=== PATIENT | female | born 1955 | race Hispanic/Latino ===

== ENCOUNTER 2021-12-23 15:56 | Emergency (ER) | payer BC, MEDICARE ==
[~2021-12-23] VITALS: Ht 160 cm; Wt 90.7 kg
[2021-12-23] MEDS ORDERED: PHENAZOPYRIDINE HCL 200 MG TABLET PO ONE (16:30)
[2021-12-23] MEDS ORDERED: ACETAMINOPHEN 500 MG TABLET PO ONE (16:30)
[2021-12-23] MEDS ORDERED: NITROFURANTOIN MONOHYD/M-CRYST 100 MG CAPSULE PO ONE (16:30)
[2021-12-23 16:45] LABS: APPEARANCE,URINE TURBID (CLEAR); BILIRUBIN,URINE NEGATIVE (NEGATIVE); COLOR,URINE RED (YELLOW); GLUCOSE, URINE (UA) NEGATIVE (NEGATIVE); KETONES,URINE NEGATIVE (NEGATIVE); LEUKOCYTE ESTERASE ,URINE LARGE (NEGATIVE); NITRATE,URINE NEGATIVE (NEGATIVE); OCCULT BLOOD,URINE LARGE (NEGATIVE); PROTEIN,URINE 100 mg/dL (NEGATIVE); UROBILINOGEN,URINE 0.2 mg/dL (0.2-1.0)
[2021-12-23] MEDS ORDERED: MACR100 PO (17:02)
[2021-12-23] MEDS ORDERED: PHEN-847 PO (17:02)
[2021-12-23 17:03] LABS: RBC,URINE TNTC /HPF (0-1)
[2021-12-23 17:06] VITALS: BP 135/79
[2021-12-23 17:06] LABS: BACTERIA,URINE Few /HPF (None Seen); SQUAMOUS EPITHELIAL CELL,UR Rare /HPF (0-2)
[2021-12-23 17:07] LABS: TRANSITIONAL EPI CELLS,URINE Rare /HPF (None Seen); WBC,URINE 26-50 /HPF (0-1)
[2021-12-23 17:08] LABS: RENAL EPITHELIAL CELLS,URINE Rare /HPF (None Seen)
== END 2021-12-23 17:15 | disposition home or self-care (01) ==
LOC: EDH 15:56
DX: N39.0 Urinary tract infection, site not specified (principal); I10 Essential (primary) hypertension; Z88.0 Allergy status to penicillin; Z88.1 Allergy status to other antibiotic agents; Z88.6 Allergy status to analgesic agent; Z88.2 Allergy status to sulfonamides; Z98.890 Other specified postprocedural states
CPT/HCPCS: 81001; 87077; 87088; 87186

== ENCOUNTER 2022-08-23 20:42 | Inpatient (IN) | payer BC, MEDICARE ==
[~2022-08-23] VITALS: Ht 160 cm; Wt 84.5 kg
[~2022-08-23 20:42] MED LIST: CACL 1GM SYG IVP ONE; MACR100 PO; PHEN-847 PO
[2022-08-23 21:05] LABS: BASOPHILS % (AUTO) 0.6 % (0.0-5.0); EOSINOPHILS % (AUTO) 0.4 % (0.0-8.0); HEMATOCRIT 34.8 % (36-48); LYMPHOCYTES % (AUTO) 20.4 % (21.0-51.0); MEAN CORPUSCULAR HEMOGLOBIN 28.1 pg (27.0-33.0); MEAN CORPUSCULAR HGB CONC 33.6 g/dL (32.0-36.0); MEAN CORPUSCULAR VOLUME 83.7 fL (79-99); MONOCYTES % (AUTO) 8.1 % (3.0-13.0); NEUTROPHILS % (AUTO) 70.2 % (40.0-77.0); PLATELET COUNT (AUTO) 404 K/uL (130-400); RED BLOOD CELL COUNT(AUTO) 4.16 MIL/uL (4.00-5.50); RED CELL DISTRIBUTION WIDTH 13.5 % (11.0-15.5)
[2022-08-23] MEDS ORDERED: ATROPINE 1MG SYG IVP ONE (21:05)
[2022-08-23] MEDS ORDERED: MORPHINE 4 MG SYG ONE (21:16)
[2022-08-23] MEDS: CACL 1GM SYG IVP SCH (21:17)
[2022-08-23 21:23] LABS: ALBUMIN 2.8 g/dL (3.5-5.0); POTASSIUM 3.6 mmol/L (3.5-5.1); TOTAL PROTEIN, SERUM 7.4 g/dL (6.0-8.3)
[2022-08-23] MEDS ORDERED: ONDANSETRON 4MG INJ ONE (21:30)
[2022-08-23] MEDS ORDERED: DOPAMINE 800MG/D5 250ML 250 ML IV ONE (21:39)
[2022-08-23] MEDS ORDERED: ATROPINE 1MG SYG IVP SCH (22:00)
[2022-08-23] MEDS ORDERED: ONDANSETRON 4MG INJ IVP ONE ×2 (22:00→22:30)
[2022-08-23] MEDS ORDERED: MORPHINE 2 MG SYG IVP ONE (22:00)
[2022-08-23] MEDS ORDERED: PROCHLORPERAZINE 10MG/2ML INJ IV ONE (22:30)
[2022-08-23] MEDS ORDERED: ACETAMINOPHEN 325 MG TAB PO PRN (23:30)
[2022-08-23 23:39] LABS: PARTIAL THROMBOPLASTIN TIME 60.7 SEC (26.3-35.5)
[2022-08-23 23:47] LABS: PHOSPHORUS 3.4 mg/dL (2.5-4.9); THYROID STIMULATING HORMONE 2.44 uIU/mL (0.36-3.74)
[2022-08-23 23:53] LABS: INR 4.19 (0.85-1.15); PROTHROMBIN TIME 42.1 SEC (9.6-11.6)
[2022-08-24] VITALS (33 sets, daily range): BP systolic 115–178; BP diastolic 26–91
[2022-08-24] MEDS ORDERED: ISOS20TA9 PO (02:27)
[2022-08-24] MEDS ORDERED: HYDR-3421 PO (02:27)
[2022-08-24] MEDS ORDERED: SACU1TAB7 PO (02:27)
[2022-08-24] MEDS ORDERED: HYDR-4154 PO (02:27)
[2022-08-24] MEDS ORDERED: DILT60TA3 PO (02:27)
[2022-08-24] MEDS ORDERED: DOXA4TAB3 PO (02:27)
[2022-08-24] MEDS ORDERED: SOLU-MEDROL 125MG VIAL IM ONE (04:00)
[2022-08-24] MEDS ORDERED: ALBUTEROL INHALER 90MCG/INH IH PRN (04:00)
[2022-08-24] MEDS ORDERED: SOLU-MEDROL 125MG VIAL IVP ONE (04:30)
[2022-08-24 05:28] LABS: BASOPHILS % (AUTO) 0.4 % (0.0-5.0); EOSINOPHILS % (AUTO) 0.1 % (0.0-8.0); HEMATOCRIT 38.1 % (36-48); LYMPHOCYTES % (AUTO) 7.8 % (21.0-51.0); MEAN CORPUSCULAR HEMOGLOBIN 28.1 pg (27.0-33.0); MEAN CORPUSCULAR HGB CONC 32.8 g/dL (32.0-36.0); MEAN CORPUSCULAR VOLUME 85.6 fL (79-99); MONOCYTES % (AUTO) 7.6 % (3.0-13.0); NEUTROPHILS % (AUTO) 83.3 % (40.0-77.0); PLATELET COUNT (AUTO) 472 K/uL (130-400); RED BLOOD CELL COUNT(AUTO) 4.45 MIL/uL (4.00-5.50); RED CELL DISTRIBUTION WIDTH 13.2 % (11.0-15.5); WHITE BLOOD COUNT (AUTO) 21.1 K/uL (4.8-10.8)
[2022-08-24 05:41] LABS: CREATININE 1.1 mg/dL (0.5-1.5)
[2022-08-24 06:02] LABS: APPEARANCE,URINE CLOUDY (CLEAR); BILIRUBIN,URINE NEGATIVE (NEGATIVE); COLOR,URINE YELLOW (YELLOW); GLUCOSE, URINE (UA) NEGATIVE (NEGATIVE); KETONES,URINE 5 mg/dL (NEGATIVE); LEUKOCYTE ESTERASE ,URINE NEGATIVE Leu/uL (NEGATIVE); NITRATE,URINE NEGATIVE (NEGATIVE); OCCULT BLOOD,URINE SMALL (NEGATIVE); PH,URINE 5.5 (5.0-8.0); PROTEIN,URINE 50 mg/dL (NEGATIVE); UROBILINOGEN,URINE 0.2 mg/dL (0.2-1.0)
[2022-08-24] MEDS ORDERED: LIOT5TAB11 PO (06:25)
[2022-08-24] MEDS ORDERED: LEVO75CA5 PO (06:25)
[2022-08-24] MEDS ORDERED: WARF4TAB72 PO (06:38)
[2022-08-24] MEDS ORDERED: VERA300C4 PO (06:38)
[2022-08-24] MEDS ORDERED: WARF-67 PO (06:38)
[2022-08-24] MEDS ORDERED: AUD IH (06:38)
[2022-08-24] MEDS ORDERED: BUDE10.2 IH (06:40)
[2022-08-24 06:47] LABS: WBC,URINE None Seen /HPF (0-1)
[2022-08-24] MEDS ORDERED: GUAI5LIQ13 PO (06:47)
[2022-08-24] MEDS ORDERED: LOSA25TA41 PO (06:47)
[2022-08-24] MEDS ORDERED: NALT5POW MC (06:47)
[2022-08-24 06:48] LABS: BACTERIA,URINE Rare /HPF (None Seen); CALCIUM OXALATE CRYSTALS,UR Few /LPF (None Seen); SQUAMOUS EPITHELIAL CELL,UR Few /HPF (0-2)
[2022-08-24] MEDS: ALBUTEROL 0.083% 2.5 MG/3 ML INH IH SCH ×4 (07:16→23:27)
[2022-08-24] MEDS: CACL 1GM SYG IVP SCH (07:48)
[2022-08-24] MEDS ORDERED: FUROSEMIDE 20MG VIAL IV SCH (08:30)
[2022-08-24] MEDS ORDERED: MEROPENEM 2 GM in 0.9%NACL 100ML 100 ML IVPB SCH (09:00)
[2022-08-24] MEDS ORDERED: COMPOUND IV REFRIGERATED 1 EACH IVSOLN MISC PRN (09:30)
[2022-08-24] MEDS ORDERED: VANCOMYCIN PROTOCOL PER PHARMACY IV SCH (09:30)
[2022-08-24] MEDS ORDERED: MEROPENEM 1 GM VIAL IVP SCH ×2 (09:30→10:30)
[2022-08-24] MEDS ORDERED: PHARMACY COMMUNICATION MISC SCH (09:30)
[2022-08-24] MEDS: FAMOTIDINE 20MG VIAL IV SCH (09:36)
[2022-08-24] MEDS ORDERED: MEROPENEM 1 GM VIAL ONE (09:37)
[2022-08-24] MEDS: VANCOMYCIN 1.25GM/NS 250ML IVPB SCH ×2 (10:13)
[2022-08-24] MEDS ORDERED: 0.9%NACL 1000ML 1,000 ML IV ONE (11:12)
[2022-08-24] MEDS: MEROPENEM 1 GM VIAL IVP SCH ×2 (12:00→23:39)
[2022-08-24] MEDS ORDERED: SOLU-MEDROL 40MG VIAL IVP SCH (12:00)
[2022-08-24 14:33] LABS: PROTHROMBIN TIME 49.6 SEC (9.6-11.6)
[2022-08-24 14:34] LABS: INR 4.98 (0.85-1.15)
[2022-08-24] MEDS ORDERED: FLUTICASONE/VILANTEROL 1 EACH AER.POW.BA IH PRN (16:30)
[2022-08-25] VITALS (26 sets, daily range): BP systolic 140–180; BP diastolic 61–92
[2022-08-25] MEDS: DOPAMINE 800MG/D5 250ML 250 ML IV PRN (02:09)
[2022-08-25 05:16] LABS: HEMATOCRIT 36.7 % (36-48); MEAN CORPUSCULAR HEMOGLOBIN 28.4 pg (27.0-33.0); MEAN CORPUSCULAR HGB CONC 33.2 g/dL (32.0-36.0); MEAN CORPUSCULAR VOLUME 85.3 fL (79-99); RED BLOOD CELL COUNT(AUTO) 4.3 MIL/uL (4.00-5.50); RED CELL DISTRIBUTION WIDTH 13.3 % (11.0-15.5)
[2022-08-25 05:41] LABS: CREATININE 0.8 mg/dL (0.5-1.5); PHOSPHORUS 3.1 mg/dL (2.5-4.9); POTASSIUM 3.8 mmol/L (3.5-5.1)
[2022-08-25 05:55] LABS: PROTHROMBIN TIME 47.7 SEC (9.6-11.6)
[2022-08-25 05:56] LABS: INR 4.78 (0.85-1.15)
[2022-08-25] MEDS: LEVOTHYROXINE 75 MCG TABLET PO SCH (05:57)
[2022-08-25] MEDS: ALBUTEROL 0.083% 2.5 MG/3 ML INH IH SCH (07:20)
[2022-08-25] MEDS: FAMOTIDINE 20MG VIAL IV SCH (08:43)
[2022-08-25] MEDS: VANCOMYCIN 1.25GM/NS 250ML IVPB SCH ×2 (10:19)
[2022-08-25] MEDS: MEROPENEM 1 GM VIAL IVP SCH ×2 (12:10→23:36)
[2022-08-25] MEDS: CACL 1GM SYG IVP SCH (21:31)
[2022-08-26] VITALS (24 sets, daily range): BP systolic 102–173; BP diastolic 39–87
[2022-08-26 03:53] LABS: HEMATOCRIT 36.3 % (36-48); MEAN CORPUSCULAR HEMOGLOBIN 28.3 pg (27.0-33.0); MEAN CORPUSCULAR VOLUME 88.5 fL (79-99); RED BLOOD CELL COUNT(AUTO) 4.1 MIL/uL (4.00-5.50); RED CELL DISTRIBUTION WIDTH 13.6 % (11.0-15.5); WHITE BLOOD COUNT (AUTO) 22.4 K/uL (4.8-10.8)
[2022-08-26 03:54] LABS: ABG BASE EXCESS 6.1 mmol/L (-2.0-3.0); ABG HCO3 30.9 mmol/L (21.0-28.0); ABG OXYGEN SATURATION 95.9 % (95.0-99.0); ABG PCO2 45 mmHg (32-45)
[2022-08-26 04:07] LABS: INR 2.15 (0.85-1.15); PROTHROMBIN TIME 22.4 SEC (9.6-11.6)
[2022-08-26 04:08] LABS: PARTIAL THROMBOPLASTIN TIME 38.8 SEC (26.3-35.5)
[2022-08-26 04:17] LABS: ALBUMIN 3.2 g/dL (3.5-5.0); CREATININE 0.8 mg/dL (0.5-1.5); PHOSPHORUS 3.3 mg/dL (2.5-4.9); POTASSIUM 4.4 mmol/L (3.5-5.1)
[2022-08-26] MEDS: DOPAMINE 800MG/D5 250ML 250 ML IV PRN (04:36)
[2022-08-26] MEDS: LEVOTHYROXINE 75 MCG TABLET PO SCH (05:32)
[2022-08-26] MEDS ORDERED: NALOXONE HCL 0.4 MG/1 ML ML IVP PRN (09:15)
[2022-08-26] MEDS ORDERED: FENTANYL CITRATE PF 50 MCG/1 ML 2ML VIAL IVP SCH (09:15)
[2022-08-26] MEDS ORDERED: FLUMAZENIL 0.1MG/1ML 5ML VIAL IV PRN (09:15)
[2022-08-26] MEDS: BENZOCAINE 20% 57 GM SPRAY TP SCH (09:15)
[2022-08-26] MEDS ORDERED: MIDAZOLAM HCL 1 MG/ML 2ML VIAL IVP SCH (09:15)
[2022-08-26] MEDS ORDERED: LIDOCAINE HCL 2% VISCOUS 15 ML UDCUP PO SCH (09:30)
[2022-08-26] MEDS: FAMOTIDINE 20MG VIAL IV SCH (10:57)
[2022-08-26] MEDS: ENOXAPARIN SODIUM 80 MG/0.8 ML SQ SCH ×2 (10:59→20:22)
[2022-08-26] MEDS: VANCOMYCIN 1.25GM/NS 250ML IVPB SCH ×2 (11:02)
[2022-08-26] MEDS ORDERED: PHARMACY COMMUNICATION MISC SCH (13:30)
[2022-08-26] MEDS ORDERED: [UNRECOGNIZED DRUG - OTHER] IV ONE (14:00)
[2022-08-26] MEDS ORDERED: GENTAMICIN SULFATE IV ONE (14:00)
[2022-08-26] MEDS ORDERED: GENTAMICIN PROTOCOL PER PHARMACY IV SCH (14:00)
[2022-08-26] MEDS: MEROPENEM 1 GM VIAL IVP SCH ×2 (14:03→23:15)
[2022-08-26] MEDS: CACL 1GM SYG IVP SCH (22:00)
[2022-08-27] VITALS (14 sets, daily range): BP systolic 120–151; BP diastolic 54–82
[2022-08-27 03:59] LABS: BASOPHILS % (AUTO) 0.3 % (0.0-5.0); EOSINOPHILS % (AUTO) 0.6 % (0.0-8.0); LYMPHOCYTES % (AUTO) 29.6 % (21.0-51.0); MEAN CORPUSCULAR HEMOGLOBIN 28.3 pg (27.0-33.0); MEAN CORPUSCULAR HGB CONC 33.4 g/dL (32.0-36.0); MEAN CORPUSCULAR VOLUME 84.5 fL (79-99); MONOCYTES % (AUTO) 9.8 % (3.0-13.0); NEUTROPHILS % (AUTO) 59.5 % (40.0-77.0); PLATELET COUNT (AUTO) 338 K/uL (130-400); RED BLOOD CELL COUNT(AUTO) 4.14 MIL/uL (4.00-5.50); RED CELL DISTRIBUTION WIDTH 13.4 % (11.0-15.5); WHITE BLOOD COUNT (AUTO) 9.3 K/uL (4.8-10.8)
[2022-08-27 04:08] LABS: INR 1.79 (0.85-1.15); PROTHROMBIN TIME 18.9 SEC (9.6-11.6)
[2022-08-27 04:09] LABS: PARTIAL THROMBOPLASTIN TIME 48.7 SEC (26.3-35.5)
[2022-08-27 04:13] LABS: CREATININE 0.8 mg/dL (0.5-1.5); POTASSIUM 3.8 mmol/L (3.5-5.1)
[2022-08-27] MEDS: LEVOTHYROXINE 75 MCG TABLET PO SCH (06:05)
[2022-08-27] MEDS: ENOXAPARIN SODIUM 80 MG/0.8 ML SQ SCH ×2 (08:38→20:32)
[2022-08-27] MEDS: FAMOTIDINE 20MG VIAL IV SCH (08:38)
[2022-08-27] MEDS: BENZOCAINE 20% 57 GM SPRAY TP SCH (08:39)
[2022-08-27] MEDS ORDERED: LACTULOSE 20 GM/30 ML UDCUP PO PRN (10:00)
[2022-08-27] MEDS ORDERED: KCL 20 MEQ ERTAB PO SCH (10:00)
[2022-08-27] MEDS ORDERED: KCL 20 MEQ ERTAB PO ONE (10:02)
[2022-08-27] MEDS: VANCOMYCIN 1.25GM/NS 250ML IVPB SCH ×2 (10:04)
[2022-08-27] MEDS: CACL 1GM SYG IVP SCH (20:32)
[2022-08-27] MEDS: VANCOMYCIN 1G/250ML KIT 250 ML IV SCH (20:33)
[2022-08-28 03:51] VITALS: BP 155/75
[2022-08-28 04:01] VITALS: BP 130/46
[2022-08-28 04:10] LABS: BASOPHILS % (AUTO) 0.4 % (0.0-5.0); EOSINOPHILS % (AUTO) 2.2 % (0.0-8.0); HEMATOCRIT 30.7 % (36-48); LYMPHOCYTES % (AUTO) 26.9 % (21.0-51.0); MEAN CORPUSCULAR HGB CONC 32.9 g/dL (32.0-36.0); MONOCYTES % (AUTO) 8.1 % (3.0-13.0); NEUTROPHILS % (AUTO) 62.1 % (40.0-77.0); PLATELET COUNT (AUTO) 277 K/uL (130-400); RED BLOOD CELL COUNT(AUTO) 3.61 MIL/uL (4.00-5.50); RED CELL DISTRIBUTION WIDTH 13.2 % (11.0-15.5)
[2022-08-28 04:17] LABS: CREATININE 0.7 mg/dL (0.5-1.5); POTASSIUM 3.6 mmol/L (3.5-5.1)
[2022-08-28 04:25] LABS: INR 1.27 (0.85-1.15); PROTHROMBIN TIME 13.7 SEC (9.6-11.6)
[2022-08-28] MEDS: LEVOTHYROXINE 75 MCG TABLET PO SCH (06:06)
[2022-08-28] MEDS: FAMOTIDINE 20MG VIAL IV SCH (07:58)
[2022-08-28] MEDS: VANCOMYCIN 1G/250ML KIT 250 ML IV SCH ×2 (07:59→20:52)
[2022-08-28 08:00] VITALS: BP 142/63
[2022-08-28] MEDS ORDERED: LIDOCAINE HCL-MPF 1% 2ML VIAL IV PRN (08:00)
[2022-08-28] MEDS: ENOXAPARIN SODIUM 80 MG/0.8 ML SQ SCH ×2 (08:00→20:52)
[2022-08-28] MEDS ORDERED: POTASSIUM CHLORIDE 10% ELIXIR 20 MEQ/15 ML UDCUP PO PRN (08:00)
[2022-08-28] MEDS ORDERED: POTASSIUM CHLORIDE 20MEQ/100ML 100 ML IV PRN (08:00)
[2022-08-28] MEDS: BENZOCAINE 20% 57 GM SPRAY TP SCH (08:00)
[2022-08-28] MEDS: KCL 20 MEQ ERTAB PO PRN ×2 (08:28→10:48)
[2022-08-28 11:00] VITALS: BP 130/64
[2022-08-28] MEDS ORDERED: FUROSEMIDE 40MG VIAL IV SCH (11:30)
[2022-08-28] MEDS: GENTAMICIN SULFATE IV SCH (13:46)
[2022-08-28] MEDS: [UNRECOGNIZED DRUG - OTHER] IV SCH (13:46)
[2022-08-28 16:00] VITALS: BP 140/74
[2022-08-28 20:26] VITALS: BP 147/76
[2022-08-29 00:23] VITALS: BP 137/80
[2022-08-29 04:29] VITALS: BP 153/77
[2022-08-29] MEDS: LEVOTHYROXINE 75 MCG TABLET PO SCH (06:01)
[2022-08-29 08:14] VITALS: BP 145/92
[2022-08-29 08:37] LABS: BASOPHILS % (AUTO) 0.4 % (0.0-5.0); EOSINOPHILS % (AUTO) 3.3 % (0.0-8.0); HEMATOCRIT 37.2 % (36-48); LYMPHOCYTES % (AUTO) 27.1 % (21.0-51.0); MEAN CORPUSCULAR HEMOGLOBIN 27.9 pg (27.0-33.0); MEAN CORPUSCULAR HGB CONC 33.3 g/dL (32.0-36.0); MEAN CORPUSCULAR VOLUME 83.6 fL (79-99); MONOCYTES % (AUTO) 9.6 % (3.0-13.0); NEUTROPHILS % (AUTO) 58.8 % (40.0-77.0); PLATELET COUNT (AUTO) 340 K/uL (130-400); RED BLOOD CELL COUNT(AUTO) 4.45 MIL/uL (4.00-5.50); RED CELL DISTRIBUTION WIDTH 13.3 % (11.0-15.5); WHITE BLOOD COUNT (AUTO) 9.8 K/uL (4.8-10.8)
[2022-08-29] MEDS: FAMOTIDINE 20MG VIAL IV SCH (08:38)
[2022-08-29] MEDS: ENOXAPARIN SODIUM 80 MG/0.8 ML SQ SCH ×2 (08:38→21:25)
[2022-08-29 08:47] LABS: CREATININE 0.8 mg/dL (0.5-1.5); INR 1.08 (0.85-1.15); POTASSIUM 3.4 mmol/L (3.5-5.1); PROTHROMBIN TIME 11.7 SEC (9.6-11.6)
[2022-08-29] MEDS: BENZOCAINE 20% 57 GM SPRAY TP SCH (09:15)
[2022-08-29] MEDS: KCL 20 MEQ ERTAB PO PRN (10:26)
[2022-08-29] MEDS: VANCOMYCIN 1G/250ML KIT 250 ML IV SCH ×2 (10:27→21:26)
[2022-08-29 12:19] VITALS: BP 134/68
[2022-08-29 16:02] VITALS: BP 147/78
[2022-08-29 20:28] VITALS: BP 141/75
[2022-08-30] VITALS (41 sets, daily range): BP systolic 97–151; BP diastolic 42–124
[2022-08-30] MEDS ORDERED: DOPAMINE 800MG/D5 250ML 250 ML IV PRN (01:00)
[2022-08-30] MEDS: ONDANSETRON 4MG INJ IV PRN (02:13)
[2022-08-30] MEDS: LEVOTHYROXINE 75 MCG TABLET PO SCH (06:30)
[2022-08-30 06:32] LABS: BASOPHILS % (AUTO) 0.5 % (0.0-5.0); EOSINOPHILS % (AUTO) 2.6 % (0.0-8.0); HEMATOCRIT 38.2 % (36-48); LYMPHOCYTES % (AUTO) 20.4 % (21.0-51.0); MEAN CORPUSCULAR HGB CONC 32.5 g/dL (32.0-36.0); MEAN CORPUSCULAR VOLUME 86.2 fL (79-99); MONOCYTES % (AUTO) 9.1 % (3.0-13.0); NEUTROPHILS % (AUTO) 66.3 % (40.0-77.0); PLATELET COUNT (AUTO) 325 K/uL (130-400); RED BLOOD CELL COUNT(AUTO) 4.43 MIL/uL (4.00-5.50); RED CELL DISTRIBUTION WIDTH 13.3 % (11.0-15.5)
[2022-08-30 06:38] LABS: CREATININE 0.7 mg/dL (0.5-1.5); MAGNESIUM 2.1 mg/dL (1.80-2.40); PHOSPHORUS 4.2 mg/dL (2.5-4.9)
[2022-08-30] MEDS: BENZOCAINE 20% 57 GM SPRAY TP SCH (09:15)
[2022-08-30 09:34] LABS: INR 0.99 (0.85-1.15); PROTHROMBIN TIME 10.8 SEC (9.6-11.6)
[2022-08-30 09:35] LABS: PARTIAL THROMBOPLASTIN TIME 32.7 SEC (26.3-35.5)
[2022-08-30] MEDS: ENOXAPARIN SODIUM 80 MG/0.8 ML SQ SCH ×2 (10:26→20:52)
[2022-08-30] MEDS: FAMOTIDINE 20MG VIAL IV SCH (10:27)
[2022-08-30] MEDS: VANCOMYCIN 1G/250ML KIT 250 ML IV SCH ×2 (10:27→20:53)
[2022-08-30] MEDS ORDERED: ALTEPLASE 2MG VIAL 2 MG/VIAL VIAL IVCATH PRN (10:30)
[2022-08-30] MEDS: GENTAMICIN SULFATE IV SCH (14:42)
[2022-08-30] MEDS: [UNRECOGNIZED DRUG - OTHER] IV SCH (14:42)
[2022-08-31] VITALS (43 sets, daily range): BP systolic 104–146; BP diastolic 53–97
[2022-08-31 04:00] LABS: CREATININE 0.7 mg/dL (0.5-1.5); POTASSIUM 3.8 mmol/L (3.5-5.1)
[2022-08-31 04:03] LABS: BASOPHILS % (AUTO) 0.7 % (0.0-5.0); HEMATOCRIT 38.8 % (36-48); LYMPHOCYTES % (AUTO) 26.8 % (21.0-51.0); MEAN CORPUSCULAR HEMOGLOBIN 28.2 pg (27.0-33.0); MEAN CORPUSCULAR HGB CONC 33.5 g/dL (32.0-36.0); MEAN CORPUSCULAR VOLUME 84.2 fL (79-99); MONOCYTES % (AUTO) 10.4 % (3.0-13.0); NEUTROPHILS % (AUTO) 56.9 % (40.0-77.0); PLATELET COUNT (AUTO) 326 K/uL (130-400); RED BLOOD CELL COUNT(AUTO) 4.61 MIL/uL (4.00-5.50); RED CELL DISTRIBUTION WIDTH 13.3 % (11.0-15.5); WHITE BLOOD COUNT (AUTO) 11.4 K/uL (4.8-10.8)
[2022-08-31 04:29] LABS: INR 0.97 (0.85-1.15); PROTHROMBIN TIME 10.6 SEC (9.6-11.6)
[2022-08-31] MEDS: LEVOTHYROXINE 75 MCG TABLET PO SCH (06:51)
[2022-08-31] MEDS: ENOXAPARIN SODIUM 80 MG/0.8 ML SQ SCH ×2 (09:00→20:14)
[2022-08-31] MEDS: VANCOMYCIN 1G/250ML KIT 250 ML IV SCH ×2 (14:04→20:13)
[2022-08-31] MEDS: FAMOTIDINE 20MG VIAL IV SCH (14:04)
[2022-08-31] MEDS ORDERED: LIDOCAINE HCL 1% 20 ML VIAL ONE ×2 (15:33→15:49)
[2022-08-31] MEDS ORDERED: MIDAZOLAM HCL 1 MG/ML 2ML VIAL ONE ×3 (15:54→16:04)
[2022-08-31] MEDS ORDERED: MEPERIDINE-PF 25 MG/ML SYG ONE ×3 (15:54→16:05)
[2022-08-31] MEDS ORDERED: IOHEXOL-350 50ML VIAL IV ONE (16:05)
[2022-08-31] MEDS ORDERED: ACETAMINOPHEN 500 MG TABLET PO PRN (17:00)
[2022-08-31] MEDS: ACETAMINOPHEN WITH CODEINE 1 TAB TAB PO PRN ×2 (19:05→22:31)
[2022-09-01] MEDS: ACETAMINOPHEN WITH CODEINE 1 TAB TAB PO PRN ×4 (02:34→19:59)
[2022-09-01 02:50] VITALS: BP 129/73
[2022-09-01 05:37] LABS: BASOPHILS % (AUTO) 0.4 % (0.0-5.0); EOSINOPHILS % (AUTO) 3.1 % (0.0-8.0); HEMATOCRIT 37.1 % (36-48); MEAN CORPUSCULAR HEMOGLOBIN 27.9 pg (27.0-33.0); MEAN CORPUSCULAR HGB CONC 32.1 g/dL (32.0-36.0); MEAN CORPUSCULAR VOLUME 86.9 fL (79-99); MONOCYTES % (AUTO) 10.6 % (3.0-13.0); NEUTROPHILS % (AUTO) 63.2 % (40.0-77.0); PLATELET COUNT (AUTO) 291 K/uL (130-400); RED BLOOD CELL COUNT(AUTO) 4.27 MIL/uL (4.00-5.50); RED CELL DISTRIBUTION WIDTH 13.6 % (11.0-15.5); WHITE BLOOD COUNT (AUTO) 12.4 K/uL (4.8-10.8)
[2022-09-01 05:51] LABS: MAGNESIUM 2.1 mg/dL (1.80-2.40); PHOSPHORUS 4.8 mg/dL (2.5-4.9); POTASSIUM 4.2 mmol/L (3.5-5.1)
[2022-09-01] MEDS: LEVOTHYROXINE 75 MCG TABLET PO SCH (06:00)
[2022-09-01] MEDS: FAMOTIDINE 20MG VIAL IV SCH (08:21)
[2022-09-01] MEDS: VANCOMYCIN 1G/250ML KIT 250 ML IV SCH ×2 (08:21→20:00)
[2022-09-01] MEDS: ENOXAPARIN SODIUM 80 MG/0.8 ML SQ SCH ×2 (08:22→19:59)
[2022-09-01 09:56] VITALS: BP 152/66
[2022-09-01 11:53] VITALS: BP 136/70
[2022-09-01] MEDS: GENTAMICIN SULFATE IV SCH (14:48)
[2022-09-01] MEDS: [UNRECOGNIZED DRUG - OTHER] IV SCH (14:48)
[2022-09-01 15:44] VITALS: BP 136/78
[2022-09-01] MEDS ORDERED: PHARMACY COMMUNICATION MISC SCH ×2 (19:30)
[2022-09-01 20:00] VITALS: BP 160/83
[2022-09-02] VITALS: BP 143/77
[2022-09-02] MEDS: ACETAMINOPHEN WITH CODEINE 1 TAB TAB PO PRN ×2 (01:13→08:32)
[2022-09-02 04:00] VITALS: BP 156/82
[2022-09-02] MEDS: LEVOTHYROXINE 75 MCG TABLET PO SCH (05:17)
[2022-09-02] MEDS: ONDANSETRON 4MG INJ IV PRN (05:17)
[2022-09-02 08:00] VITALS: BP 161/79
[2022-09-02] MEDS ORDERED: ALBUTEROL INHALER 90MCG/INH IH PRN (09:00)
[2022-09-02] MEDS ORDERED: ALTEPLASE 2MG VIAL 2 MG/VIAL VIAL IVCATH SCH (09:00)
[2022-09-02] MEDS: VANCOMYCIN 1G/250ML KIT 250 ML IV SCH (09:00)
[2022-09-02] MEDS: FAMOTIDINE 20MG VIAL IV SCH (10:53)
[2022-09-02] MEDS: ENOXAPARIN SODIUM 80 MG/0.8 ML SQ SCH (10:53)
[2022-09-02 12:00] VITALS: BP 180/103
[2022-09-02] MEDS ORDERED: LOSARTAN 25 MG TABLET PO ONE (12:30)
[2022-09-02] MEDS ORDERED: WARFARIN SODIUM 5 MG TAB PO SCH (12:30)
[2022-09-02] MEDS ORDERED: GENTAMICIN SULFATE 320 MG in 0.9%NACL 100ML 100 ML IV SCH (14:00)
== END 2022-09-02 15:30 | disposition home or self-care (01) | DRG 853 ==
LOC: EDH 20:42 → EDHIP 22:51 → 2CH 08-24 02:03 → 2DH 08-28 10:51 → 2BH 08-30 01:31 → 2DH 09-01 01:53 → 4CH 09-01 02:50
PROVIDERS: ADMIT Internal Medicine; ATTEND Internal Medicine
PROC: 30233K1 Transfusion of Nonautologous Frozen Plasma into Peripheral Vein, Percutaneous Approach (ICD-10-PCS; 2022-08-25)
PROC: 0JH606Z Insertion of Pacemaker, Dual Chamber into Chest Subcutaneous Tissue and Fascia, Open Approach (ICD-10-PCS; principal; 2022-08-31)
PROC: 02H63JZ Insertion of Pacemaker Lead into Right Atrium, Percutaneous Approach (ICD-10-PCS; 2022-08-31)
PROC: 02HK3JZ Insertion of Pacemaker Lead into Right Ventricle, Percutaneous Approach (ICD-10-PCS; 2022-08-31)
DX: A41.81 Sepsis due to Enterococcus (principal); J96.01 Acute respiratory failure with hypoxia; I44.2 Atrioventricular block, complete; I47.1 Supraventricular tachycardia; D68.9 Coagulation defect, unspecified; I50.32 Chronic diastolic (congestive) heart failure; I48.92 Unspecified atrial flutter; Z20.822 Contact with and (suspected) exposure to COVID-19; Z68.33 Body mass index [BMI] 33.0-33.9, adult; J45.909 Unspecified asthma, uncomplicated; I27.20 Pulmonary hypertension, unspecified; I25.10 Atherosclerotic heart disease of native coronary artery without angina pectoris; I11.0 Hypertensive heart disease with heart failure; E03.9 Hypothyroidism, unspecified; E66.9 Obesity, unspecified; E78.5 Hyperlipidemia, unspecified; F17.210 Nicotine dependence, cigarettes, uncomplicated; Z95.0 Presence of cardiac pacemaker; Z90.710 Acquired absence of both cervix and uterus; Z87.440 Personal history of urinary (tract) infections; Z86.73 Personal history of transient ischemic attack (TIA), and cerebral infarction without residual deficits; Z95.2 Presence of prosthetic heart valve; Z79.01 Long term (current) use of anticoagulants
CPT/HCPCS: 33208; 36415; 36600; 71045; 80048; 80053; 80170; 80202; 81001; 82803; 82948; 83605; 83735; 84100; 84443; 84484; 85025; 85027; 85384; 85610; 85730; 86140; 86850; 86900; 86901; 86927; 87040; 87077; 87088; 87186; 87635; 87804; 92610; 93005; 93306; 93312; 94640; 94664; 99156; 99157; 99291; 99292; C1751; C1785; C1894; C9803; G0378; J0461; J0780; J1265; J1580; J1650; J1940; J2175; J2185; J2250; J2270; J2310; J2405; J2920; J2930; J2997; J3010; J3370; J3490; J7030; J7050; P9012; P9017; Q9967

== ENCOUNTER → 2023-11-07 | Outpatient (CLI) | payer MEDICARE ==
[~2023-11-07] MED LIST changes: +AUD IH; +BUDE10.2 IH; -CACL 1GM SYG IVP ONE; +GUAI5LIQ13 PO; +LEVO75CA5 PO; +LIOT5TAB11 PO; +LOSA25TA41 PO; -MACR100 PO; +NALT5POW MC; -PHEN-847 PO; +WARF-67 PO; +WARF4TAB72 PO
== END | disposition home or self-care (01) ==
LOC: RAH 10:18
PROVIDERS: ATTEND Nurse Practitioner Family
DX: Z12.31 Encounter for screening mammogram for malignant neoplasm of breast (principal); N63.31 Unspecified lump in axillary tail of the right breast; R92.30 Dense breasts, unspecified
CPT/HCPCS: 77067

== ENCOUNTER → 2023-12-05 | Outpatient (CLI) | payer MEDICARE | END | disposition home or self-care (01) | LOC: RAH 14:17 | PROVIDERS: ATTEND Nurse Practitioner Family | DX: N60.01 Solitary cyst of right breast (principal); R92.8 Other abnormal and inconclusive findings on diagnostic imaging of breast; N63.11 Unspecified lump in the right breast, upper outer quadrant | CPT/HCPCS: 76641 ==

== ENCOUNTER → 2024-08-15 | Outpatient (CLI) | payer MEDICARE ==
[~2024-08-15] MED LIST changes: +IOHEXOL 350 MG/ML 100ML INFUS..BTL IV ONE
--- NOTE | 2024-08-15 12:30 | HMCIMG ---
CT ABDOMEN/PELVIS W/CONTRAST HISTORY: Abdominal pain COMPARISON: None TECHNIQUE: Multiple sequential axial images of the abdomen and pelvis were obtained from the dome of the diaphragm through symphysis pubis. Patient was given 100 cc of Omnipaque through intravenous route. Oral contrast was given. FINDINGS: No pleural effusion is seen bilaterally. There is no evidence of parenchymal disease or pulmonary nodule of the visualized lower lungs. Degenerative changes of the thoracolumbar spine are present. The heart is not enlarged. Liver is enlarged with fatty changes measuring 16.4 cm. Multiple calcified granuloma are seen throughout the spleen. The liver, spleen, adrenal glands and pancreas are unremarkable. There is no evidence of hydronephrosis bilaterally. No evidence of renal stone is seen. Fecal material is seen in the colon. There are normal size retroperitoneal and mesenteric lymph nodes. No ascites is seen. No CT evidence of acute appendicitis is seen. No bowel obstruction is seen. Pelvic sidewalls are symmetric bilaterally. Bladder is poorly distended. IMPRESSION: 1. No acute findings. CT was performed with one or more following dose reduction techniques: automated exposure control, adjustment of the mA and kv according to patient's size, or use of a iterative reconstruction technique.
== END | disposition home or self-care (01) ==
LOC: RAH 10:31
PROVIDERS: ATTEND Student in an Organized Health Care Education/Training Program
DX: K76.0 Fatty (change of) liver, not elsewhere classified (principal); N32.89 Other specified disorders of bladder; D73.89 Other diseases of spleen; M47.815 Spondylosis without myelopathy or radiculopathy, thoracolumbar region; R10.9 Unspecified abdominal pain
CPT/HCPCS: 74177; Q9967

== ENCOUNTER → 2025-01-17 | Outpatient (CLI) | payer MEDICARE ==
[~2025-01-17] MED LIST changes: -GUAI5LIQ13 PO; +GUAI5SYR10 PO; -IOHEXOL 350 MG/ML 100ML INFUS..BTL IV ONE; -LEVO75CA5 PO; +LEVO75CA6 PO
--- NOTE | 2025-01-17 11:40 | HMCIMG ---
PROCEDURE: MAMMO DX BILATERAL, US BREAST BILATERAL HISTORY: Breast cancer COMPARISON: 11/07/2023 TECHNIQUE: Bilateral digital diagnostic mammogram with CAD was performed. No additional views were obtained. Bilateral breast ultrasound study was performed. FINDINGS: The breasts are extremely dense which lowers the sensitivity of mammogram. There is no evidence of a dominant mass, or suspicious microcalcification. There is no evidence of nipple retraction or skin thickening. Bilateral breast ultrasound study shows hypoechoic nodule at the lumpectomy site may be related to scar tissue measuring 3 x 0.9 cm. No other cystic or hypoechoic mass is seen of either breast. Prominent duct is seen in the retroareolar region of left breast. There are bilateral axillary lymph nodes with right measuring 2.9 x 1 cm and largest on the left measuring 2.3 x 2.4 cm. IMPRESSION: 1. Hypoechoic nodule at lumpectomy site of right breast near the 10:00 may be related to scar tissue. Six-month follow-up study may be helpful BI-RADS: CATEGORY 3: PROBABLE BENIGN-SHORT INTERVAL FOLLOWUP SUGGESTED Recommend monthly self breast exam as well as annual clinical examination. A negative x-ray should not delay biopsy if a dominant or clinically suspicious mass is present, since 8-10% of cancers are not identified by mammography. Dense breasts particularly, may obscure an underlying neoplasm. Some of these may be detected clinically and therefore, clinical examination is an essential part of breast evaluation.
== END | disposition home or self-care (01) ==
LOC: RAH 09:43
PROVIDERS: ATTEND Internal Medicine Hematology & Oncology
DX: C50.411 Malignant neoplasm of upper-outer quadrant of right female breast (principal); N63.11 Unspecified lump in the right breast, upper outer quadrant; R92.30 Dense breasts, unspecified
CPT/HCPCS: 77066